=== PATIENT | male | born 1990 | race Caucasian/White ===

== ENCOUNTER 2021-11-10 05:06 | Emergency (ER) | payer OTHER ==
[~2021-11-10] VITALS: Ht 172.7 cm; Wt 93.2 kg
[2021-11-10] MEDS ORDERED: CYCL-707 PO (06:42)
[2021-11-10] MEDS ORDERED: diazePAM 10MG/2ML SYRINGE (J3360 PER 5MG) IV ONE (06:45)
[2021-11-10] MEDS ORDERED: NS 1,000 ML IV ONE (06:45)
[2021-11-10 07:00] LABS: BASO % 0.3 % (0.0-1.0); EOS # 0.1 10^3/uL (0.0-0.5); HEMATOCRIT 43.8 % (42.0-52.0); HEMOGLOBIN 15.2 g/dl (13.5-17.5); LYMPH # 2.4 10^3/uL (1.5-5.0); LYMPH % 28.1 % (24.0-44.0); MEAN CORPUSCULAR HEMOGLOBIN 28.1 pg (27.0-33.0); MEAN CORPUSCULAR HGB CONC 34.7 g/dl (32.0-36.5); MONO # 0.7 10^3/uL (0.0-0.8); MONO % 7.9 % (2.0-8.0); NEUTROPHILS # 5.4 10^3/uL (1.5-8.5); NEUTROPHILS % 62.2 % (36.0-66.0); PLATELET COUNT, AUTOMATED 314 10^3/uL (150-450); RED BLOOD COUNT 5.41 10^6/uL (4.30-6.10); WHITE BLOOD COUNT 8.6 10^3/uL (4.0-10.0)
[2021-11-10] MEDS ORDERED: diazePAM 5MG TABLET PO ONE (08:10)
[2021-11-10 08:26] VITALS: BP 130/86
== END 2021-11-10 08:33 | disposition home or self-care (01) ==
LOC: M ED 07:11
DX: R25.1 Tremor, unspecified (principal); R29.818 Other symptoms and signs involving the nervous system; Z88.0 Allergy status to penicillin
CPT/HCPCS: 80047; 83735; 85025; 93005; 96361; 96374; 99284; J3360